=== PATIENT | female | born 1955 | race Caucasian/White ===

== ENCOUNTER 2024-05-21 11:48 | Emergency (ER) | payer MEDICARE, OTHER ==
[~2024-05-21] VITALS: Ht 154.9 cm; Wt 59.0 kg
[2024-05-21] MEDS ORDERED: LOSA50TA39 PO (12:30)
[2024-05-21] MEDS ORDERED: FLUO10TA PO (12:30)
[2024-05-21] MEDS ORDERED: PANT40TA49 PO (12:30)
[2024-05-21] MEDS ORDERED: ROSU5TAB PO (12:30)
[2024-05-21] MEDS: ASPIRIN 81 MG TAB.CHEW PO ONE (12:58)
[2024-05-21] MEDS ORDERED: ASPIRIN 81 MG TAB.CHEW ONE (12:58)
[2024-05-21 13:07] LABS: BASOPHILS % (AUTO) 0.3 % (0.0-2.0); EOSINOPHILS # (AUTO) 0.2 K/uL (0.0-0.7); EOSINOPHILS % (AUTO) 2.3 % (0.0-7.0); HEMATOCRIT 36.2 % (31.2-41.9); HEMOGLOBIN 11.8 g/dL (10.9-14.3); LYMPHOCYTES # (AUTO) 1.7 K/uL (0.8-4.8); LYMPHOCYTES % (AUTO) 23.1 % (20.5-51.5); MEAN CORPUSCULAR HEMOGLOBIN 29.3 uug (24.7-32.8); MEAN CORPUSCULAR HGB CONC 33 g/dL (32.3-35.6); MONOCYTES # (AUTO) 0.6 K/uL (0.1-1.30); MONOCYTES % (AUTO) 8.3 % (0.0-11.0); NEUTROPHILS # (AUTO) 4.7 K/uL (1.8-8.9); PLATELET COUNT (AUTO) 247 K/uL (179-408); RED BLOOD CELL COUNT(AUTO) 4.02 MIL/uL (3.63-4.92); RED CELL DISTRIBUTION WIDTH 12.9 % (12.3-17.7); WHITE BLOOD COUNT (AUTO) 7.2 K/uL (3.8-11.8)
[2024-05-21 13:18] LABS: CALCIUM 8.8 mg/dL (8.5-10.1); CARBON DIOXIDE 24 mmol/L (21-32); CHLORIDE 109 mmol/L (98-107); CREATININE 0.7 mg/dL (0.6-1.3); GLUCOSE 84 mg/dL (74-106); POTASSIUM 3.9 mmol/L (3.5-5.1); SODIUM SERUM 141 mmol/L (136-145); UREA NITROGEN, BLOOD 21 mg/dL (7-18)
[2024-05-21 13:24] LABS: MAGNESIUM 2.1 mg/dL (1.8-2.4)
[2024-05-21 13:27] LABS: ALANINE AMINOTRANSFERASE 17 U/L (14-59); ALBUMIN 3.4 g/dL (3.4-5.0); ALKALINE PHOSPHATASE 78 U/L (50-136); ASPARTATE AMINOTRANSFERASE 13 U/L (15-37); BILIRUBIN,DIRECT 0.2 mg/dL (0.0-0.2); BILIRUBIN,TOTAL 0.7 mg/dL (0.2-1.0); TOTAL PROTEIN, SERUM 6.8 g/dL (6.4-8.2)
[2024-05-21] MEDS: IV NS 1000 ML 1,000 ML IV ONE ×2 (14:30)
[2024-05-21] MEDS ORDERED: FLAS1EAC2 TP (16:19)
[2024-05-21] MEDS ORDERED: FLAS1KIT2 TP (16:19)
[2024-05-21 16:31] VITALS: BP 138/78; TEMP 97; O2SAT 98
== END 2024-05-21 16:32 | disposition home or self-care (01) ==
LOC: ER 11:48
DX: R07.89 Other chest pain (principal); R19.7 Diarrhea, unspecified; E78.5 Hyperlipidemia, unspecified; K21.9 Gastro-esophageal reflux disease without esophagitis; Z79.899 Other long term (current) drug therapy
CPT/HCPCS: 36415; 71045; 83735; 84484; 85025; 85730; 93005; A4606; A4663; J7040